=== PATIENT | male | born 1980 | race Caucasian/White ===

== ENCOUNTER 2018-03-28 09:44 | Emergency (ER) ==
[2018-03-28 09:58] VITALS: BP 128/78; TEMP 96.9; BMI 24.0
--- NOTE | 2018-03-28 10:16 | ED.PDOC ---
General ED Provider: Dr. 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 Denies knowledge of specific injury. Has been bothered for several weeks with discomfort/pain involving the top of his lt shoulder. Has increased discomfort with movement, especially elevation and attempts to complete ROM- circumduction restricted as well as abduction and flexion. Seemed lto be more painful today and came in for evaluation Time Seen by Physician: 10:05 Mode of Arrival: Walk-In Information Source: Patient Exam Limitations: No limitations Primary Care Provider: RITCHIE NGUYEN Referred to ED by: Other (self) Nursing and Triage Documentation Reviewed and Agree: Yes Reviewed sepsis parameters & appropriate labs ordered?: Yes System Inflammatory Response Syndrome: Not Applicable Sepsis Protocol: For patient's 13 years and over: Temp is 96.8 and below OR 101 and greater Pulse >90 BPM Resp >20/minute Acutely Altered Mental Status Are patient's symptoms suggestive of a new infection, such as: -Pneumonia -Skin, Soft Tissue -Endocarditis -UTI -Bone, Joint Infection -Implantable Device -Acute Abdominal Infection -Wound Infection -Meningitis -Blood Stream Catheter Infection -Unknown System Inflammatory Response Syndrome: Not Applicable Musculoskeletal Complaint Exam - Shoulder Pain Complaint/Exam Mechanism of Injury: Reports: No known trauma Onset/Duration: several weeks Symptoms Are: Still present Timing: Intermittent Initial Severity: Moderate Current Severity: Moderate Location: Reports: Discrete Character: Reports: Sharp, Aching, Stiffness Alleviating: Reports: Compression Aggravating: Reports: Movement, Lifting, Flexion, External rotation, Abduction Associated Signs and Symptoms: Denies: Swelling, Redness, Bruising, Fever, Weakness, Numbness, Tingling Related History: Denies: Similar episode Non-Orthopedic Risk Factors: Reports: None DVT Risk Factors: Reports: None Septic Arthritis Risk Factors: Reports: None Related Surgical History: Reports: None Shoulder Findings: Absent: Swelling, Ecchymosis, Abnormal contour, Rotation Tenderness: Absent: Clavicle, AC joint Limited Range of Motion: Present: Abduction, Flexion, Internal rotation, External rotation, Rotator cuff muscles Differential Diagnoses: Contusion, Strain, Bursitis Review of Systems - Review Of Systems Constitutional: Reports: No symptoms Eyes: Reports: No symptoms Ears, Nose, Mouth, Throat: Reports: No symptoms Respiratory: Reports: No symptoms Cardiac: Reports: No symptoms GI: Reports: No symptoms : Reports: No symptoms Musculoskeletal: Reports: No symptoms, Joint pain Skin: Reports: No symptoms Neurological: Reports: No symptoms Endocrine: Reports: No symptoms Hematologic/Lymphatic: Reports: No symptoms All Other Systems: Reviewed and Negative Past Medical History - Past Medical History Previously Healthy: Yes Endocrine: Reports: None Cardiovascular: Reports: Hypertension Respiratory: Reports: None Hematological: Reports: None Gastrointestinal: Reports: None Genitourinary: Reports: None Neuro/Psych: Reports: None Musculoskeletal: Reports: None Cancer: Reports: None - Surgical History General Surgical History: Reports: Other (ORAL SURGERY) - Family History Family History: Reports: Unknown - Social History Smoking Status: Current every day smoker, Heavy tobacco smoker Hx Substance Use: No Alcohol Screening: None Physical Exam - Physical Exam Appearance: Well-appearing Ill-appearing: None Pain Distress: None Eyes: LEIGHANN, EOMI, Conjunctiva clear ENT: Ears normal, Nose normal, Oropharynx normal Respiratory: Airway patent, Breath sounds clear, Breath sounds equal, Respirations nonlabored Cardiovascular: RRR, Pulses normal, No rub, No murmur Musculoskeletal: Normal strength, Limited ROM (Lt shoulder) Neurological: Sensation intact, Motor intact, Reflexes intact, Cranial nerves intact, Alert, Oriented Psychiatric: Affect appropriate Interpretation - Radiology Interpretation Radiology Interpretation By: Radiologist Radiology Results: Positive Xray Comments: Lt AC arthritis Critical Care Note - Critical Care Note Total Time (mins): 0 Course - Course Orders, Labs, Meds: Orders Category Date Time Status AC JOINTS, BILATERAL Stat RADS 03/28/18 10:11 Completed SHOULDER, LEFT MIN 2V Stat RADS 03/28/18 10:11 Completed Vital Signs: Temp Pulse Resp BP Pulse Ox 03/28/18 09:45 96.9 F L 102 H 2 L 128/78 97 Departure - Departure Time of Disposition: 11:15 Disposition: HOME SELF-CARE Discharge Problem: Acromioclavicular joint pain, Acromioclavicular joint arthritis Instructions: Osteoarthritis (ED) Condition: Good Pt referred to PMD for follow-up: Yes (Dr Nguyen) IPMP verified?: No Additional Instructions: Sling to lt shoulder to reduce discomfort. Take Ibuprofen 600 mg 4 times daily for relief of pain See Dr Nguyen for follow up care. Allergies/Adverse Reactions: Allergies No Known Allergies Allergy (Verified 03/28/18 09:51) Home Medications: Ambulatory Orders Ibuprofen 600 mg PO Q6HR #40 tablet 03/28/18 Disposition Discussed With: Patient
--- NOTE | 2018-03-28 11:03 | DI ---
EXAM: Three views of the left shoulder HISTORY: Left shoulder pain. COMPARISON: None FINDINGS: There is degenerative change and osteophyte formation of the left AC joint. There is a sub tle lucency in the distal aspect of the clavicle. There is no displaced fracture or dislocation. Th e adjacent osseous structures and soft tissues are normal. IMPRESSION: Degenerative change of the left acromioclavicular joint.
--- NOTE | 2018-03-28 11:03 | DI ---
EXAM: Bilateral acromioclavicular joints with without weights HISTORY: Pain in the left AC joint. COMPARISON: Left shoulder x-rays same day FINDINGS: The left AC joint demonstrates mild degenerative change and small lucency at the tip of the clavicle. The right AC joint is normal. There is no change in alignment of the acromioclavicular j oints with weights. No additional abnormality is identified. IMPRESSION: Degenerative change and subchondral cyst of the distal left AC joint/clavicle. No displaced fractu re or change in alignment with weights.
== END 2018-03-28 11:42 | disposition home or self-care (01) ==
LOC: ED 09:44
DX: M19.012 Primary osteoarthritis, left shoulder (principal); F17.210 Nicotine dependence, cigarettes, uncomplicated
CPT/HCPCS: 99282